=== PATIENT | female | born 1950 | race Caucasian/White ===

== ENCOUNTER → 2021-08-04 09:05 | Outpatient (BNVA) | payer MEDICARE, MEDICAID, SELFPAY | PROVIDERS: Family Provider Internal Medicine; PCP Internal Medicine; Referring Provider Internal Medicine; Visit Provider Specialist | DX: R20.0 Anesthesia of skin (principal); R20.2 Paresthesia of skin | CPT/HCPCS: 95909; 95910 ==

== ENCOUNTER → 2021-09-13 14:46 | Outpatient (BNVA) | payer MEDICARE, MEDICAID, SELFPAY | PROVIDERS: Family Provider Internal Medicine; PCP Internal Medicine; Visit Provider Internal Medicine | DX: D64.9 Anemia, unspecified (principal); R20.0 Anesthesia of skin; R20.2 Paresthesia of skin | CPT/HCPCS: 80053; 82607; 82746; 83036; 83550; 84443; 85025 ==

== ENCOUNTER 2021-09-21 07:38 | Outpatient (CLI) | payer MEDICARE, MEDICAID, SELFPAY ==
[2021-09-21 08:29] VITALS: BMI 28.3
--- NOTE | 2021-09-21 08:29 | ECG_ITS ---
[facility] Test Date: 2021-09-21 Pat Name: Shy Obando Department: Room: Gender: Female Internet Designer: Evie Cindy : 1950 Requested By: Lon Anthony Order Number: [id number] Manuelito MD: Lon Anthony M.D. Interpretive Statements NAME OF STUDY: LEXISCAN SESTAMIBI STRESS TEST INDICATION: [Chest Pain] Procedure: At the baseline, the blood pressure was 156/79 mmHg with a heart rate of 59 bpm. The electrocardiogram showed normal sinus bradycardia, normal axis with normal ST and T's. The Lexiscan was infused over a period of 20 seconds. A total of 0.4 mg of Lexiscan was infused. The stress phase was continued for a total of 5 minutes. Heart rate was at the end of stress phase was 89 bpm and a blood pressure of 170/80 mmHg. The EKG at the peak infusion revealed since normal sinus rhythm with no significant ST-T wave changes. Sestamibi was injected 20 seconds after the Lexiscan infusion. Blood pressure at the end of recovery phase was 143/78 mmHg with a heart rate of 69 bpm. Conclusion: 1. Normal EKG response to Lexiscan infusion 2. No Lexiscan induced chest pain or cardiac arrhythmia. 3. Normal blood pressure and heart rate response. 4. Sestamibi/sestamibi perfusion scan pending; see separate report. Electronically Signed On 10-09-2021 23:56:43 CDT by Lon Anthony M.D. [email or web address]
--- NOTE | 2021-09-21 08:31 | NMCV_ITS ---
NM jean claude perf SPECT r/s* [id number] Shy Obando Age: 71 Gender: F : 1950 Exam Date: 09/21/2021 09:02 Ordering Phys: Lon Anthony M.D ([email or web address]) Technologist: MOHIT Brito Exam Location: [facility] Indications: Chest pain, SOB STRESS TEST [facility] IMAGE PROTOCOL Rest/Stress 1 Lexiscan Day Radiopharmaceutical Dose (mCi) Administration Site Administered by Rest: Tc-99m 11.0 IV MOHIT Brito Sestamibi Stress:Tc-99m 33.0 IV MOHIT Brito Sestamibi Rest: 21-Sep-2021 60 Discovery 630 Stress: 21-Sep-2021 30 Discovery 630 0.4mg Lexiscan. Images obtained in supine and prone position. SPECT RESULTS Technical Quality: Good Raw Data Analysis: Normal Image Corrections: No attenuation or motion correction applied Summed Stress Score: 7 Summed Rest Score: 8 Summed Difference Score: 0 PERFUSION FINDINGS There is a partially reversible perfusion defect noted in the apical, apical lateral and inferolateral dinh. This is consistent with medium sized area of prior infarct in these territories with small area of sheri-infarct ischemia in the Left circumflex artery territry FUNCTIONAL RESULTS (calculated via Gated SPECT) Stress Image LV EF (%): 83 Stress EDV (mL):93 TID: 1.09 Stress ESV (mL):16 FUNCTIONAL FINDINGS: There is normal left ventricular systolic function. IMPRESSIONS 1. Abnormal myocardial perfusion imaging with medium sized area of prior infarct in the LAD and Left circumflex artery territory with small area of sheri-infarct ischemia in the left circumflex artery territory 2. LV systolic function is normal Lon Anthony MD (Electronically Signed) Final Date: 26 September 2021 09:42 S
[2021-09-21] MEDS: regadenoson 0.4 Mg/5 ml Syringe IVP (10:05)
[2021-09-21 10:13] VITALS: BP 143/78; PULSE 59
== END 2021-09-21 07:39 | disposition home or self-care (01) ==
LOC: CDL 07:41
PROVIDERS: PCP Internal Medicine; Visit Provider Internal Medicine
DX: R07.9 Chest pain, unspecified (principal); R06.02 Shortness of breath
CPT/HCPCS: 78452; 93017; A9500; J2785

== ENCOUNTER → 2021-12-12 11:22 | Outpatient (BNVA) | payer MEDICARE, MEDICAID, SELFPAY | PROVIDERS: PCP Internal Medicine; Visit Provider Internal Medicine Cardiovascular Disease | DX: R07.9 Chest pain, unspecified (principal); G47.33 Obstructive sleep apnea (adult) (pediatric); E78.5 Hyperlipidemia, unspecified; J44.9 Chronic obstructive pulmonary disease, unspecified; Z99.81 Dependence on supplemental oxygen; I25.10 Atherosclerotic heart disease of native coronary artery without angina pectoris; I10 Essential (primary) hypertension; Z98.61 Coronary angioplasty status; F17.200 Nicotine dependence, unspecified, uncomplicated | CPT/HCPCS: 99213 ==

== ENCOUNTER 2021-12-22 05:57 | Outpatient (CLI) | payer MEDICARE, MEDICAID, SELFPAY ==
[2021-12-21 09:03] VITALS: BMI 28.8
[2021-12-22] MEDS: diphenhydrAMINE 50 mg Capsule PO (06:23)
[2021-12-22 06:24] VITALS: BP 126/55; PULSE 56; RESP 16; TEMP 36.6; O2SAT 96
[2021-12-22 06:26] LABS: Basophils # 0.1 10^3/uL (0.0-0.1); Basophils % 0.7 %; Eosinophils % 0.1 %; Hematocrit 37.2 % (37.0-47.0); Hemoglobin 11.7 g/dL (11.5-15.3); Lymphocytes # 3.9 10^3/uL (0.8-4.8); Lymphocytes % 38.1 %; Mean Corpuscular HGB Conc 31.5 g/dL (30.0-36.0); Mean Corpuscular Hemoglobin 27.3 pg (28.0-34.0); Mean Corpuscular Volume 86.9 fl (81-99); Mean Platelet Volume 10.2 fL (7.4-10.4); Monocytes # 0.8 10^3/uL (0.2-0.9); Monocytes % 8.2 %; Neutrophils # 5.44 10^3/uL (1.8-7.7); Neutrophils % 52.7 %; Nucleated Red Blood Cells % 0 %; Platelet Count 277 10^3/cmm (130-400); Red Blood Count 4.28 10^6/uL (4.1-5.3); Red Cell Distribution Width 14.8 % (12.1-15.1); White Blood Count 10.3 10^3/uL (4.0-10.0)
[2021-12-22 06:47] LABS: Anion Gap 15.6 (5-19); Blood Urea Nitrogen 36 mg/dL (8-23); Calcium 9.4 mg/dL (8.5-10.5); Carbon Dioxide 24 mmol/L (22-29); Chloride 104 mmol/L (98-107); Glucose 101 mg/dL (65-115); Osmolality Calculated 296 mOsm/kg (285-295); Potassium 4.6 mmol/L (3.5-5.1); Sodium 139 mmol/L (136-145)
--- NOTE | 2021-12-22 06:48 | P.HPUD_ITS ---
Surgery/Procedure H&P Update DATE OF PROCEDURE: December 22, 2021 DATE H&P PERFORMED: 12/12/21 CHANGES TO PREVIOUS DOCUMENTATION: None PREOP DIAGNOSIS: chest pain PRIMARY INDICATION FOR PROCEDURE: chest pain PLANNED PROCEDURE: Operation Date: 12/22/21 07:00 Proposed Procedures p [facility] 44554,R07.9(Left) - Humberto Brown MD
--- NOTE | 2021-12-22 07:13 | PC.NURSE ---
Due to high creatinine the case will be cancelled. Dr. Brown has spoken to the patient.
--- NOTE | 2021-12-22 07:14 | PM.MISC ---
Miscellaneous Note Note: Shy arrived this morning for outpatient elective coronary angiography. Her creatinine is now 2.2. In August it was 1.8. She is not on any cardiac medications which will negatively affect her renal function. Since her stress test in September revealed a small to moderate area of a fixed defect surrounded by a very small area of sheri-infarct ischemia it is a low risk examination. I felt it best to cancel the coronary angiogram for today so as not to potentially worsen her renal function. I had a discussion with her about this. She will continue her same medications and we will follow her up in the office.
== END 2021-12-22 05:58 | disposition home or self-care (01) ==
LOC: CCL 06:01
PROVIDERS: PCP Internal Medicine; Visit Provider Internal Medicine Cardiovascular Disease
DX: R07.9 Chest pain, unspecified (principal); Z53.8 Procedure and treatment not carried out for other reasons; I10 Essential (primary) hypertension; I25.10 Atherosclerotic heart disease of native coronary artery without angina pectoris; E78.5 Hyperlipidemia, unspecified; M79.7 Fibromyalgia; Z99.81 Dependence on supplemental oxygen; J44.9 Chronic obstructive pulmonary disease, unspecified; F17.210 Nicotine dependence, cigarettes, uncomplicated; Z79.82 Long term (current) use of aspirin; F17.200 Nicotine dependence, unspecified, uncomplicated; G47.33 Obstructive sleep apnea (adult) (pediatric)
CPT/HCPCS: 80048; 85025; J1644; J2250; J3010; J3490; J7030; Q0163

== ENCOUNTER → 2022-05-24 13:11 | Outpatient (BNVA) | payer MEDICARE, MEDICAID, SELFPAY | PROVIDERS: PCP Internal Medicine; Visit Provider Internal Medicine | DX: I13.0 Hypertensive heart and chronic kidney disease with heart failure and stage 1 through stage 4 chronic kidney disease, or unspecified chronic kidney disease (principal); F17.200 Nicotine dependence, unspecified, uncomplicated; N18.4 Chronic kidney disease, stage 4 (severe); I50.9 Heart failure, unspecified; G47.33 Obstructive sleep apnea (adult) (pediatric); Z99.81 Dependence on supplemental oxygen; E78.5 Hyperlipidemia, unspecified; J44.9 Chronic obstructive pulmonary disease, unspecified; I25.10 Atherosclerotic heart disease of native coronary artery without angina pectoris; Z79.82 Long term (current) use of aspirin | CPT/HCPCS: 99214 ==

== ENCOUNTER → 2022-10-06 10:25 | Outpatient (BNVA) | payer MEDICARE, MEDICAID, SELFPAY | PROVIDERS: PCP Internal Medicine; Visit Provider Internal Medicine Cardiovascular Disease | DX: I25.119 Atherosclerotic heart disease of native coronary artery with unspecified angina pectoris (principal); I12.9 Hypertensive chronic kidney disease with stage 1 through stage 4 chronic kidney disease, or unspecified chronic kidney disease; N18.4 Chronic kidney disease, stage 4 (severe); R07.9 Chest pain, unspecified; R73.03 Prediabetes; M79.7 Fibromyalgia; G47.33 Obstructive sleep apnea (adult) (pediatric); E78.5 Hyperlipidemia, unspecified; Z99.81 Dependence on supplemental oxygen; Z72.0 Tobacco use; J44.9 Chronic obstructive pulmonary disease, unspecified | CPT/HCPCS: 99214 ==

== ENCOUNTER 2022-10-25 06:01 | Outpatient (CLI) | payer MEDICARE, MEDICAID, SELFPAY ==
[2022-10-25] VITALS (14 sets, daily range): BP systolic 133–175; BP diastolic 55–85; PULSE 44–69; RESP 10–19; TEMP 37.1; O2SAT 93–98; BMI 29.4
--- NOTE | 2022-10-25 06:00 | XACV_ITS ---
Exam Room: 2 Ht: 160 cm Wt: 75 kg BSA: 1.85 m2 Gender: Female : 1950 Any Known Allergies: Other Exam Priority: Routine Procedure(s): Procedure Description: Diagnostic procedure Procedure Description: Left Heart Catheterization Procedure Description: Coronary Angiography Stephanie ESPINOZA; Diagnostic Cath Status: Elective Diagnostic Findings * Patient with known mild coronary artery disease with accelerating chest pain. Taking multiple nitroglycerin with minimal exertion such as making the bed. Known stage III renal disease with creatinine 1.8 which is stable. Hydration undertaken and plans to use minimal contrast with no left ventriculogram. * Angiography reveals left coronary artery dominance. The left main coronary artery is normal. All vessels are heavily calcified. The LAD contains 20 to 30% calcified narrowing in the proximal and mid portions. The remainder of the vessel is essentially free of disease with no significant stenoses. The circumflex is the dominant artery and gives off several marginal branches in the posterior descending artery. Distally there is a 50% stenosis. The vessel is moderately calcified. There is also a ramus intermedius artery which is calcified with no significant lesions. The right coronary artery is a nondominant vessel and is essentially free of disease.. Conclusions 1. Nonobstructive calcified coronary artery disease. Recommendations * Medical treatment. Diagnostic RX Recommendation: medical therapy and/or counseling Anticoagulation: Heparin Pressures Phase:Rest AO : 191 / 79 ( 116 ) @ 8:21:00 AM Clinical Evaluation EBL: 5mL-10mL Procedural Details Procedure Consent Obtained. Admit Source: Out Patient. Pre-Procedure Time Out. Identified patient by full name and date of as verbalized by the patient/guarantor. Does the consent match the physician's order: Yes. Accurate & Complete Informed Consent: Yes. Inpatient/Outpatient History & Physical on Chart: Yes. If H&P is completed, is and addenduem needed: No; If yes, is the addendum complete: N/A. Visualize and Verify Site with Patient/Guarantor: N/A. Relevant Radiology Images available: N/A. The risks, benefits, and alternatives of sedation and/or procedure were discussed by physician. The patient agrees to continue. Procedure started. [facility] Clinical Fraility Score: 5: Mildly Frail. Studio Operation Engineer Indications: Worsening Angina. Chest Pain Symptom Assessment: Typical Angina Symptoms. Correct patient, site and procedure confirmed by cath team. Current diagnosis: Chest Pain. PERRLA. Strong, equal hand precision assembly inspector bilaterally. Lungs clear x 5 lobes. IV Site on Arrival: 18 gauge in the right anticubital. IV Fluids: 0.9% NaCl at KVO. 0 mL infused prior to recyclable materials sorter. Pre Procedural Pulses: bilateral radial was 3+. Pre Procedural Pulses: bilateral posterior tibial was 2+. Pre Procedural Pulses: bilateral dorsalis pedis was 3+. Oxygen started at 2liters/min via nasal canula. right radial was prepped with chloroprep then draped in the usual sterile fashion. right groin was prepped with chloroprep then draped in the usual sterile fashion. Physician notified. Baseline sample Acquired. HR: 53 BPM. Physician arrived. Physician scrubbed in. Immediate Pre-Procedure Time Out. Correct Patient: Yes; Correct Procedure: Yes; Correct Site: Yes; Correct Patient Position: Yes; Correct Supplies: Yes; Dried Flammable Prep: Yes; Blood Products Available: No;. Lidocaine 1% infiltrated to the right radial. Arterial access obtained. A 5 english TIG catheter in over wire. Multiple views taken of left coronary artery. Catheter redirected to the RCA. Multiple views taken of right coronary artery. Catheter removed over the exchange wire. A TR Band was successful obtaining hemostatsis at the Right Radial artery insertion site. Post Procedure: Pulses reassessed and unchanged. PERRLA. Strong, equal hand precision assembly inspector bilaterally. No VTE prophylaxis required. Medication's Wasted: Lidocaine 1% = 3 mL. Medication's Wasted: Nitro = 49.8 mg. Medication's Wasted: Heparin = 1000 units. Medication's Wasted: Other = Fentanyl 50mcg. Total IV fluids: 23 mL. Post-op diagnosis: Non-obstructive CAD. Complications: None. Estimated blood loss: 5mL-10mL. Responsiveness - Normal response to verbal stimuli; alert and oriented, PERRLA. Airway - Unaffected, no intervention required; spontaneous ventilation. Circulation: W/N/L, pulses unchanged. Nausea/Vomiting: No. Procedure completed. Patient transferred by wheelchair to CPRU. Vital chart was stopped. Access Site Site: Right Radial artery Sheath Size: 6 Fr Hemostasis Method: TR Band Hemostasis Success: Successful Procedure Medications Start: 7:13 AM Stop: 7:13 AM Medication: Versed Amount: 1 mg Route: I.V. Start: 7:13 AM Stop: 7:13 AM Medication: Fentanyl Amount: 50 mcg Route: I.V. Start: 7:19 AM Stop: 7:19 AM Medication: Nitrogylcerin Amount: 200 mcg Route: I.A. Start: 7:20 AM Stop: 7:20 AM Medication: Versed Amount: 1 mg Route: I.V. Start: 7:22 AM Stop: 7:22 AM Medication: Heparin Amount: 5000 units Route: I.V. I, the attending physician, have reviewed and verified all procedure medications. Yes, all medications given per verbal order History/Risk Factors Hypertension: Yes Dyslipidemia: Yes Peripheral Arterial Disease (PAD): No Myocardial Infarction (HI): Yes Obesity: No Prior Interventions PCI: Yes CABG: No Valve Surgery: No Date of PCI: 05/20/2014 Report Signatures Finalized by Dr. Humberto Brown MD on 10/25/2022 07:39 AM
[2022-10-25] MEDS: diphenhydrAMINE 50 mg Capsule PO (06:15)
[2022-10-25 06:31] LABS: Basophils # 0.1 10^3/uL (0.0-0.1); Basophils % 0.9 %; Eosinophils # 0.4 10^3/uL (0.0-0.8); Eosinophils % 4.4 %; Hematocrit 34.6 % (36-47); Lymphocytes # 3.5 10^3/uL (0.8-4.8); Mean Corpuscular HGB Conc 30.9 g/dL (30-55); Mean Corpuscular Hemoglobin 26.1 pg (27-33); Mean Corpuscular Volume 84.4 fl (85-98); Mean Platelet Volume 10.1 fL (7.4-10.4); Monocytes # 0.6 10^3/uL (0.2-0.9); Monocytes % 6.9 %; Neutrophils # 3.44 10^3/uL (1.8-7.7); Neutrophils % 42.9 %; Nucleated Red Blood Cells % 0 %; Platelet Count 274 10^3/cmm (157-399); Red Cell Distribution Width 15.6 % (12.1-15.1)
--- NOTE | 2022-10-25 06:37 | P.HPUD_ITS ---
Surgery/Procedure H&P Update DATE OF PROCEDURE: October 25, 2022 DATE H&P PERFORMED: 10/06/22 CHANGES TO PREVIOUS DOCUMENTATION: None PREOP DIAGNOSIS: chest pain PRIMARY INDICATION FOR PROCEDURE: accelerating angina PLANNED PROCEDURE: Operation Date: 10/25/22 08:30 Proposed Procedures p [facility] w w/o [id number] I25.10(Left) - Humberto Brown MD
[2022-10-25 06:49] LABS: Anion Gap 10.9 (5-19); Blood Urea Nitrogen 21 mg/dL (8-23); Calcium 8.9 mg/dL (8.5-10.5); Carbon Dioxide 26 mmol/L (22-29); Chloride 106 mmol/L (98-107); Glucose 96 mg/dL (65-115); Osmolality Calculated 291 mOsm/kg (285-295); Potassium 3.9 mmol/L (3.5-5.1); Sodium 139 mmol/L (136-145)
--- NOTE | 2022-10-25 07:40 | SUR.PHASEII ---
[place] the [place] via wheelchair s/p Diagnostic [facility]. Patient ambulated to the cot without difficulty. A & 0 x 3. quality assurance monitor placed and vital signs obtained. TR band intact to the right wrist. No bleeding or hematoma noted. Palpable radial pulse. No other assessment changes noted from pre cath assessment. No concerns voiced at this time.
--- NOTE | 2022-10-25 08:40 | SUR.PHASEII ---
Letting the air out of the TR band per protocol.
--- NOTE | 2022-10-25 09:42 | SUR.PHASEII ---
TR band off. Site soft with no bleeding or hematoma noted. Area cleansed with warm water and patted dry. A large bandaid was applied to the site and loosely secured with coban. Palpable pulse present. No other changes noted at this time.
--- NOTE | 2022-10-25 09:57 | PM.DCS ---
Discharge Providers Date of Admission: October 25, 2022 Date of Discharge: October 25, 2022 Attending Provider at Admission: Stephanie Attending Provider at Discharge: Humberto Brown MD Primary Care Provider: He Francisco MD Diagnoses at Discharge Discharge Diagnosis (1) Pre-diabetes: Status: Acute (2) CKD (chronic kidney disease) stage 4, GFR 15-29 ml/min: Status: Acute (3) Fibromyalgia, primary: Status: Acute (4) Sleep apnea: Status: Acute Qualifiers: Sleep apnea type: obstructive Qualified Code(s): G47.33 - Obstructive sleep apnea (adult) (pediatric) (5) Dyslipidemia: Status: Acute (6) On home oxygen therapy: Status: Acute (7) Tobacco abuse: Status: Acute (8) Essential hypertension: Status: Acute (9) CAD (coronary artery disease): Status: Acute Qualifiers: Coronary Disease-Associated Artery/Lesion type: [place] artery Permanent problem details: [place] of LAD distribution (10) COPD (chronic obstructive pulmonary disease): Status: Acute Permanent problem details: Home O2 Reason for Visit Reason for Visit: I25.10 Brief History: Patient was electively admitted today for coronary angiography. She visited me in the office a few weeks ago complaining of accelerating chest pain. She was taking nitroglycerin several times while just making the bed. She has a number of underlying medical problems including chronic kidney disease. We scheduled the angiogram with the intent of using a minimal amount of contrast and not performing ventriculography. Hospital Course Hospital Course The procedure was done from the right radial artery. Angiography revealed no significant coronary artery disease to require intervention. There is a 40% distal circumflex lesion. She has a left dominant system. She has heavily calcified arteries. Left ventriculography was not performed. There were no complications. At the time of discharge her right radial area is flat, dry without hematoma or bleeding. Physical Exam Narrative: GENERAL: In general she is comfortable HEENT: Exam within normal limits. NECK: Supple without jugular vein distention. The carotid upstroke is normal without bruits. BACK: Exam normal. LUNGS: Clear. HEART: Regular rate and rhythm. ABDOMEN: Benign without organomegaly or tenderness. EXTREMITIES: No edema. Right radial artery area flat, dry with no bleeding, hematoma or other vascular anomaly. NEUROLOGIC: Exam normal. SKIN: Unremarkable. Discharge Data Studies Completed and Pending Completed Studies During Hospitalization Category Date Time Status FLAP CURER request for service Routine Exams 10/25/22 06:00 Completed Laboratory Results WBC 8.00 10^3/uL (3.29-11.43) 10/25/22 06:21 RBC 4.10 10^6/uL (3.85-5.65) 10/25/22 06:21 Hgb 10.70 g/dL (11.27-16.99) L 10/25/22 06:21 Hct 34.6 % (36-47) L 10/25/22 06:21 MCV 84.4 fl (85-98) L 10/25/22 06:21 MCH 26.1 pg (27-33) L 10/25/22 06:21 MCHC 30.9 g/dL (30-55) 10/25/22 06:21 RDW 15.6 % (12.1-15.1) H 10/25/22 06:21 Plt Count 274 10^3/cmm (157-399) 10/25/22 06:21 MPV 10.1 fL (7.4-10.4) 10/25/22 06:21 Neut % (Auto) 42.9 % 10/25/22 06:21 Lymph % (Auto) 44.0 % 10/25/22 06:21 Fleming % (Auto) 6.9 % 10/25/22 06:21 Eos % (Auto) 4.4 % 10/25/22 06:21 Baso % (Auto) 0.9 % 10/25/22 06:21 Neut # (Auto) 3.44 10^3/uL (1.8-7.7) 10/25/22 06:21 Lymph # (Auto) 3.5 10^3/uL (0.8-4.8) 10/25/22 06:21 Fleming # (Auto) 0.6 10^3/uL (0.2-0.9) 10/25/22 06:21 Eos # (Auto) 0.4 10^3/uL (0.0-0.8) 10/25/22 06:21 Baso # (Auto) 0.1 10^3/uL (0.0-0.1) 10/25/22 06:21 Nucleated RBC % (auto) 0 % 10/25/22 06:21 Nucleated RBCs # 0.0 /100WBC 10/25/22 06:21 Sodium 139 mmol/L (136-145) 10/25/22 06:21 Potassium 3.9 mmol/L (3.5-5.1) 10/25/22 06:21 Chloride 106 mmol/L (98-107) 10/25/22 06:21 Carbon Dioxide 26 mmol/L (22-29) 10/25/22 06:21 Anion Gap 10.9 (5-19) 10/25/22 06:21 BUN 21 mg/dL (8-23) 10/25/22 06:21 Creatinine 1.8 mg/dL (0.5-0.9) H 10/25/22 06:21 GFR Calculation Not Reportable 10/25/22 06:21 Glucose 96 mg/dL (65-115) 10/25/22 06:21 Calculated Osmolality 291 mOsm/kg (285-295) 10/25/22 06:21 Calcium 8.9 mg/dL (8.5-10.5) 10/25/22 06:21 Procedures Performed Coronary angiography Vitals Last Vital Signs Temp 98.8 F 10/25/22 06:31 Pulse 48 L 10/25/22 09:45 Resp 19 H 10/25/22 09:45 BP 134/59 10/25/22 09:45 Pulse Ox 96 10/25/22 09:45 O2 Del Method Room Air 10/25/22 09:45 Discharge Plan Discharge Patient Disposition: Home Prescriptions: Continued nitroglycerin 0.4 mg tablet, sublingual 0.4 mg sublingual Q5M PRN (Reason: chest pain) Qty: 20 3RF Rx Instructions: do not exceed 3 doses per episode cyanocobalamin (vitamin B-12) 1,000 mcg/mL solution 1,000 mcg IM .Monthly 30 Days Qty: 10 3RF fluticasone propionate 50 mcg/actuation spray,suspension 1 spray INTRANASAL BID PRN (Reason: Shortness Of Breath) Rx Instructions: administer into each nostril cetirizine [24Hour Allergy] 10 mg tablet 10 mg PO DAILY PRN (Reason: allergy symptoms) Qty: 90 3RF celecoxib 200 mg capsule 200 mg PO BID Qty: 60 5RF omeprazole 40 mg capsule,delayed release(DR/EC) 40 mg PO BID Qty: 60 5RF Incruse Ellipta 62.5 mcg/actuation blister with device 1 inh inhalation DAILY Qty: 30 3RF clopidogrel 75 mg tablet See Rx Instructions .ROUTE .COMPLEX Qty: 60 3RF Dose Instruction: TAKE 1 TABLET BY MOUTH EVERY DAY Rx Instructions: TAKE 1 TABLET BY MOUTH EVERY DAY albuterol sulfate [Ventolin HFA] 90 mcg/actuation HFA aerosol inhaler 2 puff INHALATION 6XD PRN (Reason: shortness of breath or wheezing) Qty: 8.5 3RF aspirin [Adult Aspirin Regimen] 81 mg tablet,delayed release (DR/EC) 81 mg PO DAILY Qty: 90 3RF furosemide 40 mg tablet 40 mg PO DAILY Qty: 90 3RF isosorbide mononitrate 120 mg tablet extended release 24 hr 120 mg PO BID Qty: 180 3RF lisinopril 10 mg tablet 10 mg PO DAILY Qty: 90 3RF lovastatin 40 mg tablet 40 mg PO DAILY Qty: 90 3RF metoprolol tartrate 25 mg tablet 25 mg PO BID Qty: 180 3RF potassium chloride 10 mEq tablet extended release 10 meq PO DAILY Qty: 90 3RF Referrals: Humberto Brown MD [Physician] - 11/03/22 9:15 am (RIGHT RADIAL CHECK AND BMP) Diet: Cardiac Activity: Increase activity as tolerated Patient Instructions: Midazolam (By injection), Fentanyl (By injection), Moderate Sedation (DC), After Radial Heart Catheterization (GEN) Activity Restrictions/Additional Instructions: No driving a vehicle today. No lifting over 5 pounds for 2 days with the right arm. Discharge Attestations Time Spent in Discharge Care*: less than 30 min Quality Metrics Clinical Quality Measures [ No reported AMI, CVA or VTE this stay] Coding Level of Care Code 77518 Total time (in minutes) for Discharge: 30 Diagnoses Pre-diabetes R73.03 CKD (chronic kidney disease) stage 4, GFR 15-29 ml/min N18.4 Fibromyalgia, primary M79.7 Sleep apnea G47.33 Sleep apnea type: obstructive Dyslipidemia E78.5 On home oxygen therapy Z99.81 Tobacco abuse Z72.0 Essential hypertension I10 CAD (coronary artery disease) I25.10 Coronary Disease-Associated Artery/Lesion type: [place] artery COPD (chronic obstructive pulmonary disease) J44.9
--- NOTE | 2022-10-25 10:39 | SUR.PHASEII ---
DC instructions given, the patients ride was called. She was discharged home in stable condition at 1035 via wheelchair.
== END 2022-10-25 06:02 | disposition home or self-care (01) ==
PROVIDERS: PCP Internal Medicine; Visit Provider Internal Medicine Cardiovascular Disease
DX: I25.10 Atherosclerotic heart disease of native coronary artery without angina pectoris (principal); R73.03 Prediabetes; I12.9 Hypertensive chronic kidney disease with stage 1 through stage 4 chronic kidney disease, or unspecified chronic kidney disease; N18.4 Chronic kidney disease, stage 4 (severe); M79.7 Fibromyalgia; G47.33 Obstructive sleep apnea (adult) (pediatric); E78.5 Hyperlipidemia, unspecified; Z99.81 Dependence on supplemental oxygen; Z72.0 Tobacco use; J44.9 Chronic obstructive pulmonary disease, unspecified; I25.2 Old myocardial infarction
CPT/HCPCS: 36415; 80048; 85025; 93454; 96361; 96365; 96367; 99152; C1769; C1887; C1894; J1644; J2250; J3010; J3490; J7030; Q0163; Q9967

== ENCOUNTER → 2022-11-03 09:23 | Outpatient (BNVA) | payer MEDICARE, MEDICAID, SELFPAY | PROVIDERS: PCP Internal Medicine; Visit Provider Internal Medicine Cardiovascular Disease | DX: I12.9 Hypertensive chronic kidney disease with stage 1 through stage 4 chronic kidney disease, or unspecified chronic kidney disease (principal); N18.4 Chronic kidney disease, stage 4 (severe); R73.03 Prediabetes; I20.9 Angina pectoris, unspecified; G47.33 Obstructive sleep apnea (adult) (pediatric); E78.5 Hyperlipidemia, unspecified; Z99.81 Dependence on supplemental oxygen; Z72.0 Tobacco use; J44.9 Chronic obstructive pulmonary disease, unspecified | CPT/HCPCS: 36415; 80048; 99213 ==

== ENCOUNTER → 2023-04-27 11:40 | Outpatient (BNVA) | payer MEDICARE, MEDICAID, SELFPAY | PROVIDERS: PCP Internal Medicine; Visit Provider Internal Medicine Cardiovascular Disease | DX: I25.10 Atherosclerotic heart disease of native coronary artery without angina pectoris (principal); I12.9 Hypertensive chronic kidney disease with stage 1 through stage 4 chronic kidney disease, or unspecified chronic kidney disease; N18.4 Chronic kidney disease, stage 4 (severe); Z72.0 Tobacco use; E78.5 Hyperlipidemia, unspecified; R73.03 Prediabetes; M79.7 Fibromyalgia; J44.9 Chronic obstructive pulmonary disease, unspecified; Z99.81 Dependence on supplemental oxygen | CPT/HCPCS: 99213 ==

== ENCOUNTER → 2024-03-25 12:50 | Outpatient (BNVA) | payer MEDICARE, MEDICAID, SELFPAY | PROVIDERS: PCP Internal Medicine; Referring Provider Family Medicine; Visit Provider Internal Medicine Cardiovascular Disease | DX: I25.119 Atherosclerotic heart disease of native coronary artery with unspecified angina pectoris (principal); I12.9 Hypertensive chronic kidney disease with stage 1 through stage 4 chronic kidney disease, or unspecified chronic kidney disease; F17.200 Nicotine dependence, unspecified, uncomplicated; N18.4 Chronic kidney disease, stage 4 (severe) | CPT/HCPCS: 99213 ==